=== PATIENT | female | born 1990 | race American Indian/Alaskan Native ===

== ENCOUNTER 2019-05-25 17:48 | Outpatient (CLI) | payer OTHER ==
[2019-05-25] MEDS ORDERED: LACTATED RINGERS 500 ML IV ONE (18:05)
[2019-05-25 18:44] VITALS: BP 127/63
== END 2019-05-25 19:15 | disposition home or self-care (01) ==
LOC: TRG 17:48
PROVIDERS: ATTEND Obstetrics & Gynecology
DX: O47.03 False labor before 37 completed weeks of gestation, third trimester (principal); Z3A.37 37 weeks gestation of pregnancy
CPT/HCPCS: 59025